=== PATIENT | female | born 1965 | race Caucasian/White ===

== ENCOUNTER → 2017-09-17 | Outpatient (CLI) | payer OTHER ==
[~2017-09-17] MED LIST: DIATRIZOATE MEGL/DIATRIZOA SOD 30 ML BTL PO ONE; IOPAMIDOL 370 MG/ML 200 ML INFUS..BTL INJ ONE; SODIUM CHLORIDE 0.9% 50ML 50 ML ONE
[2017-09-17 11:23] LABS: BASOPHILS % 0.6 % (0.0-1.0); EOSINOPHILS # (AUTO) 0.1 (0.0-0.4); HEMATOCRIT 36.7 % (34.2-44.1); LYMPHOCYTES % 41.6 % (18.0-39.1); MEAN CORPUSCULAR HEMOGLOBIN 31.5 pg (28-32); MEAN CORPUSCULAR HGB CONC 32.7 g/dL (31-35); MEAN CORPUSCULAR VOLUME 96.3 fL (81-99); MONOCYTES # (AUTO) 0.8 (0.2-0.8); MONOCYTES % 11.7 % (4.4-11.3); NEUTROPHILS # (AUTO) 3.1 (2.1-6.9); NEUTROPHILS % 43.8 % (38.7-80.0); PLATELET COUNT 332 x10e3/uL (140-360); RED BLOOD COUNT 3.81 x10e6/uL (3.6-5.1); RED CELL DISTRIBUTION WIDTH 14.6 % (11.7-14.4)
--- NOTE | 2017-09-17 11:27 | Diagnostic Imaging Report ---
PROCEDURE: CT ABDOMEN AND PELVIS WITH CONTRAST TECHNIQUE: The abdomen and pelvis were scanned utilizing a multidetector helical scanner from the diaphragm to the lesser trochanter after the IV administration of 100 cc of Isovue 370 and the oral administration of Gastrografin/water. Coronal and sagittal multiplanar reformations were obtained. COMPARISON: None. INDICATIONS: abdomen pain FINDINGS: LOWER THORAX: Normal. HEPATOBILIARY: Subcentimeter hypodensities in the liver are most likely cysts. No biliary ductal dilatation. There has been a cholecystectomy. SPLEEN: No splenomegaly. PANCREAS: No focal masses or ductal dilatation. ADRENALS: No adrenal nodules. KIDNEYS/URETERS: No hydronephrosis, stones, or solid mass lesions. PELVIC ORGANS/BLADDER: Evaluation of the pelvis is limited by streak artifact from left hip total arthroplasty. The uterus is absent. The ovaries are unusually high in the pelvis, and may have been surgically repositioned. The bladder is grossly unremarkable. PERITONEUM / RETROPERITONEUM: No free air or fluid. LYMPH NODES: No lymphadenopathy. VESSELS: Unremarkable. GI TRACT: No distention or wall thickening. There are few scattered sigmoid diverticula without evidence of acute inflammation. Small hiatal hernia. The appendix is normal. BONES AND SOFT TISSUES: Very small, fat-containing umbilical hernia. No bowel involvement. IMPRESSION: No specific findings to account for the patient's abdominal pain. Dictated by: Carlos Talbot M.D. on 09/17/2017 at 11:29 Electronically approved by: Carlos Talbot M.D. on 09/17/2017 at 11:29
[2017-09-17 11:47] LABS: ALANINE AMINOTRANSFERASE 29 IU/L (0-55); ALBUMIN 3.9 g/dL (3.5-5.0); ALKALINE PHOSPHATASE 41 IU/L (40-150); ANION GAP 12.3 mmol/L (8-16); BILIRUBIN,DIRECT 0.1 mg/dL (0.0-0.5); BLOOD UREA NITROGEN 9 mg/dL (7-26); BUN/CREATININE RATIO 12 (6-25); CALCIUM 9.1 mg/dL (8.4-10.2); CARBON DIOXIDE 25 mmol/L (22-29); CHLORIDE 103 mmol/L (98-107); CREATININE, SERUM 0.77 mg/dL (0.57-1.11); EST GLOMERULAR FILTRATION RATE > 60 ML/MIN (60-); GLUCOSE 93 mg/dL (74-118); POTASSIUM 3.3 mmol/L (3.5-5.1); SODIUM 137 mmol/L (136-145)
== END ==
LOC: CT 09:16
PROVIDERS: ATTEND Family Medicine
DX: R10.9 Unspecified abdominal pain (principal); K42.9 Umbilical hernia without obstruction or gangrene
CPT/HCPCS: 36415; 74177; 80048; 80076; 85025; Q9967

== ENCOUNTER → 2018-01-01 | Outpatient (CLI) | payer OTHER ==
[~2018-01-01] MED LIST changes: -DIATRIZOATE MEGL/DIATRIZOA SOD 30 ML BTL PO ONE; -IOPAMIDOL 370 MG/ML 200 ML INFUS..BTL INJ ONE; +LORAZEPAM INJ 2 MG/ML VIAL ONE; -SODIUM CHLORIDE 0.9% 50ML 50 ML ONE
--- NOTE | 2018-01-02 21:51 | Diagnostic Imaging Report ---
EXAMINATION: MRI of the lumbar spine without contrast HISTORY: Left lower extremity numbness COMPARISON: Lumbar spine MRI on 01/25/2015. TECHNIQUE: Sagittal T1, T2, STIR; axial T2 and proton density. FINDINGS: It is assumed that there are 5 lumbar vertebrae. Curvature/Alignment: Normal lordosis. Vertebrae: No evidence of recent fracture, infection, or neoplasm. Benign hemangioma in the T12, L2 on L3 vertebral bodies. Conus: Normal, terminating at T12-L1 Cauda equina: Unremarkable. Lower thoracic: Unremarkable. Paraspinal soft tissues: Unremarkable. Degenerative changes: No significant degenerative changes, no disc herniation, no spinal canal or foraminal stenosis. IMPRESSION: No significant degenerative changes, no spinal canal or foraminal stenoses. Particularly there is no evidence of nerve root compression. Unchanged from lumbar spine MRI 01/26/2016. Signed by: Dr. Merary Shipley M.D. on 01/02/2018 9:48 PM
--- NOTE | 2018-01-02 22:00 | Diagnostic Imaging Report ---
EXAMINATION: MRI of the cervical spine without contrast HISTORY: Neck pain and numbness, RA. COMPARISON: Cervical spine MRI and 01/25/2015 and 08/21/2014 TECHNIQUE: Sagittal T1, T2, STIR; axial T2, gradient echo. FINDINGS: Curvature: Normal lordosis. Vertebrae: No evidence of neoplasm, infection, or fracture. Foramen magnum: No mass, Chiari malformation, or basilar invagination. Spinal Cord: Normal size and signal intensity. Soft Tissues: Unremarkable. Degenerative changes: C1-C2: Unremarkable, particularly no erosive changes, subluxation or pannus remission formation. C2-C3: Minimal facet arthrosis without stenosis C3-C4: Mild facet arthrosis without stenosis C4-C5: Mild facet hypertrophy minimally right without stenosis C5-C6: Worsening asymmetric to the left disc osteophyte, with approximately 4.5 mm AP diameter left paracentral disc herniation which is partially effacing the ventral subarachnoid space and mildly narrowing the canal, however there is no evidence of cord compression. Uncovertebral and facet arthrosis minimally on the left results in severe foraminal stenoses, compression upon the exiting left C6 root cannot be excluded. C6-C7: Persistent mild symmetric disc bulge without significant canal or foraminal stenosis. C7-T1: Unremarkable. IMPRESSION: 1. Asymmetric to the left disc osteophyte with new superimposed left paracentral disc protrusion at C5-C6 is mildly narrowing the canal, without cord compression. 2. Worsening now severe degenerative foraminal stenosis on the left at C5-C6. 3. Stable minimal degenerative changes at C6-7 without stenosis. 4. Normal cervical spinal cord. Signed by: Dr. Merary Shipley M.D. on 01/02/2018 9:56 PM
== END ==
LOC: MRI 11-27 13:44
PROVIDERS: ATTEND Psychiatry & Neurology Clinical Neurophysiology
DX: M54.16 Radiculopathy, lumbar region (principal); M54.12 Radiculopathy, cervical region
CPT/HCPCS: 72141; 72148; J2060